=== PATIENT | male | born 1975 | race Caucasian/White ===

== ENCOUNTER → 2023-09-10 | Outpatient (CLI) | payer BC ==
[~2023-09-10] MED LIST: CITALOPRAM10 MG PO; LOPRESSOR PO; LOPRESSOR25 MG PO; Lopressor25 MG PO; PERCOCET 325 MG1 TA5 PO; SEPTRA DS 800 M1 TAB PO; VICODIN 500 MG-1 TAB PO
[2023-09-10 17:53] LABS: BUN 8 mg/dl (9-23); CHLORIDE 106 mmol/L (98-107); CHOLESTEROL 152 mg/dL (<200); LDL CHOLESTEROL 88 mg/dL (9-159); TRIGLYCERIDES 106 mg/dl (<150)
== END | disposition home or self-care (01) ==
LOC: LAB 17:14
PROVIDERS: ATTEND Family Medicine
DX: Z13.220 Encounter for screening for lipoid disorders (principal); Z13.1 Encounter for screening for diabetes mellitus